=== PATIENT | female | born 1985 | race American Indian/Alaskan Native ===

== ENCOUNTER 2018-02-14 09:46 | Outpatient (CLI) | payer BC ==
--- NOTE | 2018-02-14 10:46 | XRay Report ---
LEFT KNEE RADIOGRAPHS INDICATION: Left knee pain. COMPARISON: None similar at this institution. FINDINGS: Standing AP, lateral, oblique and sunrise views of the left knee radiographs demonstrate intact bony articulation and appearance. Normal soft tissues without evidence of suprapatellar effusion. CONCLUSION: Normal left knee radiographs. Thank you for the opportunity to participate in this patient's care.
== END 2018-02-14 09:47 | disposition home or self-care (01) ==
LOC: SPVIMAG 09:46
PROVIDERS: ATTEND Orthopaedic Surgery
DX: M25.562 Pain in left knee (principal)